=== PATIENT | female | born 1955 | race Caucasian/White ===

== ENCOUNTER 2024-09-07 10:19 | Emergency (ER) | payer MEDICARE, BC ==
[~2024-09-07] VITALS: Ht 152.4 cm; Wt 52.6 kg
[2024-09-07 10:38] VITALS: BP 206/95; PULSE 70; RESP 20; TEMP 97.8; O2SAT 99
[2024-09-07] MEDS ORDERED: APRESOLINE PO STA (10:47)
[2024-09-07] MEDS ORDERED: APRESOLINE ONE (10:51)
[2024-09-07 10:58] VITALS: BP 167/83; PULSE 71; RESP 18; O2SAT 98
== END 2024-09-07 11:12 | disposition home or self-care (01) ==
LOC: ER 10:19
DX: I10 Essential (primary) hypertension (principal)
CPT/HCPCS: 93005; 99283